=== PATIENT | male | born 1935 | race Caucasian/White ===

== ENCOUNTER 2017-01-05 10:34 | Inpatient (IN) | payer MEDICARE ==
[~2017-01-05] VITALS: Ht 175.3 cm; Wt 85.7 kg
[2017-01-05 11:50] LABS: HEMOGLOBIN 11.5 gm/dl (14.0-17.5); RED BLOOD COUNT 4.02 M/UL (4.20-5.50)
[2017-01-05 12:16] LABS: BUN/CREATININE RATIO 11 (0-10)
[2017-01-05] MEDS ORDERED: COLACE 100MG C100 MG PO (20:54)
[2017-01-05] MEDS ORDERED: FISH OIL 10001000 MG PO (20:54)
[2017-01-05] MEDS ORDERED: ASPIRIN CHEWABL81 MG PO (20:55)
[2017-01-05] MEDS ORDERED: SINGULAIR4 MG PO (20:55)
[2017-01-05] MEDS ORDERED: ZANTAC 150 MG150 MG PO (20:56)
[2017-01-05] MEDS ORDERED: PLAVIX 75 MG TA75 MG PO (20:56)
[2017-01-05] MEDS ORDERED: AVODART0.5 MG PO (20:58)
[2017-01-05] MEDS ORDERED: LIPITOR40 MG PO (20:59)
[2017-01-05] MEDS ORDERED: CARAFATE1 GM PO (21:00)
[2017-01-05] MEDS ORDERED: ARICEPT5 MG PO (21:03)
[2017-01-05 21:56] LABS: BUN/CREATININE RATIO 13 (0-10)
[2017-01-05 23:22] LABS: BUN/CREATININE RATIO 10 (0-10)
[2017-01-06 03:24] LABS: RED BLOOD COUNT 3.82 M/UL (4.20-5.50)
[2017-01-06 03:54] LABS: BUN/CREATININE RATIO 12 (0-10)
[2017-01-06 07:14] LABS: BUN/CREATININE RATIO 12 (0-10)
[2017-01-06 11:43] LABS: BUN/CREATININE RATIO 12 (0-10)
[2017-01-06] MEDS ORDERED: SINGULAIR10 MG PO (15:08)
[2017-01-06 15:35] LABS: BUN/CREATININE RATIO 10 (0-10)
[2017-01-07 05:34] LABS: HEMOGLOBIN 12.6 gm/dl (14.0-17.5)
[2017-01-07 05:38] LABS: RED BLOOD COUNT 4.35 M/UL (4.20-5.50); WHITE BLOOD COUNT 7.2 K/UL (4.5-11.0)
[2017-01-07 05:52] LABS: BUN/CREATININE RATIO 9 (0-10)
[2017-01-08 06:01] LABS: BUN/CREATININE RATIO 11 (0-10)
[2017-01-08 06:05] LABS: HEMOGLOBIN 10.4 gm/dl (14.0-17.5); RED BLOOD COUNT 3.63 M/UL (4.20-5.50); WHITE BLOOD COUNT 10.1 K/UL (4.5-11.0)
[2017-01-09 06:48] LABS: BUN/CREATININE RATIO 15 (0-10)
[2017-01-09] MEDS ORDERED: FLORINEF 0.1 M0.1 MG PO (11:24)
[2017-01-09] MEDS ORDERED: MYCOSTATIN POWD15 GM EXT (11:26)
[2017-01-09] MEDS ORDERED: SODIUM CHLORIDE1 GM PO ×2 (11:27)
== END 2017-01-09 11:57 | disposition home health service (06) | DRG 643 ==
LOC: ER1 10:34 → ZEROF 14:44 → PROG CARE 14:44 → ZEROF 14:44 → PROG CARE 20:51 → M/S 01-07 15:20
PROVIDERS: Family Medicine; Internal Medicine Nephrology; Physician Assistant Medical; Student in an Organized Health Care Education/Training Program; ADMIT Internal Medicine
DX: E27.49 Other adrenocortical insufficiency (principal); G93.41 Metabolic encephalopathy; E87.1 Hypo-osmolality and hyponatremia; E87.2 Acidosis; E87.6 Hypokalemia; E11.22 Type 2 diabetes mellitus with diabetic chronic kidney disease; I12.9 Hypertensive chronic kidney disease with stage 1 through stage 4 chronic kidney disease, or unspecified chronic kidney disease; N18.3 Chronic kidney disease, stage 3 (moderate); N40.0 Benign prostatic hyperplasia without lower urinary tract symptoms; I25.10 Atherosclerotic heart disease of native coronary artery without angina pectoris; Z95.1 Presence of aortocoronary bypass graft; Z95.5 Presence of coronary angioplasty implant and graft; G30.9 Alzheimer's disease, unspecified; F02.80 Dementia in other diseases classified elsewhere, unspecified severity, without behavioral disturbance, psychotic disturbance, mood disturbance, and anxiety; Z87.01 Personal history of pneumonia (recurrent); R31.9 Hematuria, unspecified; Z79.82 Long term (current) use of aspirin; Z79.899 Other long term (current) drug therapy; Z79.02 Long term (current) use of antithrombotics/antiplatelets
CPT/HCPCS: 36415; 71010; 71250; 80048; 80053; 81001; 82436; 82533; 82550; 82553; 82962; 83605; 83735; 83874; 83880; 83935; 84133; 84295; 84300; 84439; 84443; 84484; 84550; 85025; 85027; 87040; 93005; 96361; 96365; 97116; 99284; J0834; J1650; J1720; J2550; J2597; J7030; J7050